=== PATIENT | male | born 1955 | race Caucasian/White ===

== ENCOUNTER 2020-11-11 07:17 | Outpatient (RCR) | payer BC, SELFPAY ==
[2020-11-11] MEDS: COVID-19 VACC, MRNA(PFIZER)/PF 30 MCG/0.3 ML SYRINGE IM (08:11)
[2020-12-02] MEDS: COVID-19 VACC, MRNA(PFIZER)/PF 30 MCG/0.3 ML SYRINGE IM (07:54)
== END 2021-02-10 23:59 ==
LOC: IMMUN 07:17
PROVIDERS: PCP Internal Medicine; Referring Provider Family Medicine; Visit Provider Family Medicine
DX: Z23 Encounter for immunization (principal)
CPT/HCPCS: 0001A; 0002A; 91300

== ENCOUNTER 2021-01-05 20:46 | Day surgery (SDC) | payer BC, SELFPAY ==
[2021-01-05 20:47] VITALS: BP 119/83; PULSE 61; RESP 18; TEMP 36.1; O2SAT 96; BMI 28.1
--- NOTE | 2021-01-05 22:12 | CT_ITS ---
We are attempting to reach an attending provider to discuss findings. An addendum with communication details will be sent when the communication is complete. STUDY: CT ABDOMEN AND PELVIS WITH CONTRAST REASON FOR EXAM: Male, 65 years old. abd pain RADIATION DOSAGE (If Supplied By Facility): CTDIvol = ( 19.01 ) mGy, DLP = ( 822.52 ) mGycm TECHNIQUE: Transaxial images were obtained from the dome of the diaphragm to the symphysis pubis without oral contrast. IV 100mL Isovue-300 was administered. Sagittal and coronal images were reconstructed. Individualized dose optimization techniques were used for this CT. COMPARISON: None. FINDINGS: The visualized lung bases are unremarkable. The visualized portions of the heart are within normal limits. Normal liver. There are numerous small calcified gallstones. There is no demonstrated bile duct dilatation. There is mild splenomegaly. Normal pancreas. Normal bilateral adrenal glands. Normal right kidney. Normal left kidney. Normal visualized stomach. There is a supraumbilical ventral hernia which contains a loop of distal jejunum or proximal ileum. There is associated small bowel obstruction with mild dilatation of afferent bowel loops and decompression of efferent loops. There is a small amount of fluid in the hernia sac and there is mural thickening of adjacent bowel segments, which may be the result of venous compression/early strangulation. Normal colon. The appendix is visualized on axial images 66-81 and it appears normal.. Normal abdominal aorta. Normal inferior vena cava. Normal retroperitoneum. Normal urinary bladder. The prostate gland is enlarged.There is a small left hydrocele and there is partial demonstration of a large bore moderately large right hydrocele. There are multilevel degenerative changes of the visualized lumbar spine. CT/Abdomen/Pelvis W IV Cont ONLY IMPRESSION: Supraumbilical ventral hernia contains a loop of distal jejunum or proximal ileum. There is associated small bowel obstruction and probably early strangulation. Gallstones. Mildly enlarged prostate. Bilateral hydroceles. Mild splenomegaly.. Electronically Signed: Zohaib Sanchez MD at 0:16 EDT , Service support ,
--- NOTE | 2021-01-05 22:33 | EDS_ITS ---
HPI HPI - GI History of Present Illness Chief Complaint: Abd Pain Informant: patient Abdominal Pain/Flank Pain Onset: Today Context: Gradual Onset Timing: Continuous Quality: Aching Location: Epigastric Current Severity: Moderate Maximum Severity: Moderate Nausea/Vomiting/Emesis GI Symptom: Positive for Nausea Narrative Narrative: The patient is a 65-year-old male with medical history significant for prior hernia repair just over a year ago. He then ended up having dehiscence. He has had an intermittent periumbilical/ventral hernia. He states that usually comes and goes back and without issue. He states that about 5:00 tonight, it came out and would not go back in. He does describe some pain. He denies fever or chills. He denies any vomiting. PFSH PFSH Medical History Depression HLD (hyperlipidemia) HTN (hypertension) Hypothyroidism Home Medications amlodipine 10 mg PO DAILY 01/05/21 [History Last Taken Unknown] atorvastatin 10 mg PO DAILY 01/05/21 [History Last Taken Unknown] bupropion HCl 75 mg PO BID 01/05/21 [History Last Taken Unknown] hydrochlorothiazide 25 mg PO DAILY 01/05/21 [History Last Taken Unknown] levothyroxine 25 mcg PO DAILY 01/05/21 [History Last Taken Unknown] venlafaxine 37.5 mg PO DAILY 01/05/21 [History Last Taken Unknown] Allergy/AdvReac Type Severity Reaction Status Date / Time No Known Allergies Allergy Verified 01/05/21 20:49 Surgical History H/O hernia repair Social History Smoking Status: Former smoker ROS ROS ED Constitutional Constitutional ED: Denies chills or fever(s) Eyes Eyes: Denies blurry vision or change in vision ENT ENT ED: Denies ear pain or sore throat Cardiovascular Cardiovascular: Denies chest pain or palpitations Respiratory/Chest Respiratory/Chest: Denies cough, dyspnea or dyspnea on exertion Gastrointestinal Gastrointestinal: Reports abdominal pain; Denies nausea or vomiting Genitourinary Genitourinary ED: Denies dysuria or urinary frequency Musculoskeletal Musculoskeletal: Denies arthralgias or myalgias Integumentary Denies rash Neurologic Neurologic: Denies headache(s) or paresthesias Psychiatric Psychiatric: Denies anxiety or depression Endocrine Endocrinology: Denies polydipsia or polyuria Allergic/Immunologic Allergic/Immunologic ED: Denies urticaria EXAM Physical Exam Const Vital Signs: 01/05/21 20:47 01/05/21 22:48 01/06/21 00:11 Temperature 97 F L Temperature Source Temporal Pulse Rate 61 77 Respiratory Rate 18 18 16 Blood Pressure 119/83 H 141/75 H Blood Pressure Mean 95 97 Pulse Ox 96 97 Oxygen Delivery Method Room Air Room Air Positive well nourished and well developed General Appearance ED: well developed HEENT Reports normocephalic, head/scalp atraumatic and moist mucous membranes Eyes PERRL and EOMs intact bilaterally Neck no lymphadenopathy and supple General: Negative for tenderness Chest Wall inspection of chest normal Resp normal respiratory effort and clear to auscultation bilaterally Cardio regular rate, regular rhythm and no murmurs GI normal to inspection, nondistended, normoactive bowel sounds Palpation: soft, tender and hernia; Negative for guarding or rebound tenderness present Back/Spine no CVA tenderness Cervical Spine: Negative for cervical spine tenderness Thoracic Spine / Upper Back: Negative for thoracic spinal tenderness Extremity normal to inspection General Extremety ED: Negative for tenderness Neuro oriented x3 and CN's II-XII intact bilaterally Neuro Narrative: No focal deficits appreciated. Sensorium / Orientation: alert Psych mental status grossly normal Skin no rashes or lesions noted, no wounds and skin turgor normal MDM MDM MDM Narrative Medical decision making narrative: Patient presents with abdominal pain. He does have hernia just above the umbilicus that is not reducible. IV was established. He was given analgesics with little change. I did place an ice pack over the area. Patient had his dose of analgesics repeated. He was still uncomfortable. The ice had sat in the area for 40 minutes and the area of the hernia was still very hard and unable to be reduced. He underwent CT imaging which does demonstrate incarcerated and likely early strangulated hernia. I had talked to surgery multiple times through the patient's evaluation to keep them up-to-date. Dr. Munoz is going to evaluate the patient likely for surgical intervention. Impression 1. Incarcerated supraumbilical hernia with strangulation Lab Data Attestation: I reviewed the patient's lab results. Labs: Laboratory Results - last 24 hr 01/05/21 01/05/21 01/05/21 22:40 22:40 22:40 WBC 12.4 H RBC 4.91 Hgb 14.8 Hct 43.9 MCV 89.4 MCH 30.1 MCHC 33.7 RDW Std Deviation 42.8 RDW Coeff of Garcia 12.9 Plt Count 195 MPV 10.5 Immature Gran % (Auto) 0.400 Neut % (Auto) 89.5 H Lymph % (Auto) 5.7 L [place] % (Auto) 3.5 Eos % (Auto) 0.6 Baso % (Auto) 0.3 Absolute Neuts (auto) 11.1 H Absolute Lymphs (auto) 0.71 L Nucleated RBC % 0 Sodium 141 Potassium 3.4 L Chloride 103 Carbon Dioxide 31.0 Anion Gap 7 BUN 26 H Creatinine 1.30 Estim Creat Clear Calc 57.71 Est GFR (MDRD) Af Amer 71 Est GFR (MDRD) Non-Af 59 L BUN/Creatinine Ratio 20.0 Glucose 128 H Lactic Acid 0.9 Calcium 9.1 Total Bilirubin 1.30 H AST 19 ALT 27 Alkaline Phosphatase 52 Total Protein 7.0 Albumin 4.2 Globulin 2.8 Albumin/Globulin Ratio 1.5 Radiography Diagnostic Testing: Radiology Impression Abdomen/Pelvis CT 01/05/21 22:12 IMPRESSION: Supraumbilical ventral hernia contains a loop of distal jejunum or proximal ileum. There is associated small bowel obstruction and probably early strangulation. Gallstones. Mildly enlarged prostate. Bilateral hydroceles. Mild splenomegaly.. Electronically Signed: Zohaib Sanchez MD at 0:16 EDT , Service support , ADDENDUM: 01/06/21 0038 IMPRESSION: Supraumbilical ventral hernia contains a loop of distal jejunum or proximal ileum. There is associated small bowel obstruction and probably early strangulation. Gallstones. Mildly enlarged prostate. Bilateral hydroceles. Mild splenomegaly.. N.B. : The above information has been verbally conveyed by Zohaib Sanchez MD to Socrates Zhang MD, on 01/06/2021 00:31:10 (ET). Electronically Signed: Zohaib Sanchez MD at 0:16 EDT , Service support , Discharge Plan Triage Chief Complaint: Abd Pain ED Provider: Socrates Zhang Dx/Rx/DC Orders Prescriptions: No Action venlafaxine 37.5 mg Capsule,Extended Release 24hr 37.5 mg PO DAILY RF: 0 atorvastatin 10 mg Tablet 10 mg PO DAILY RF: 0 levothyroxine 25 mcg Tablet 25 mcg PO DAILY RF: 0 amlodipine 10 mg Tablet 10 mg PO DAILY RF: 0 bupropion HCl 75 mg tablet 75 mg PO BID RF: 0 hydrochlorothiazide 25 mg Tablet 25 mg PO DAILY RF: 0 Primary Care Provider: Kurt Garcia
[2021-01-05] MEDS: Ondansetron 4 MG/2 ML Vial IV (22:44)
[2021-01-05] MEDS: 0.9% Normal Saline 1,000 ML 1000 ML IV (22:44)
[2021-01-05] MEDS: Morphine 4 MG/ML Syringe IV (22:44)
[2021-01-05 22:48] VITALS: RESP 18
[2021-01-05 23:00] LABS: Absolute Lymphocyte Count 0.71 X10^3/uL (0.83-4.51); Absolute Neutrophil Count 11.1 X10^3/uL (2.0-7.7); Basophil# 0.04 X10^3/uL; Basophil% 0.3 % (0-1); Eosinophil# 0.08 X10^3/uL; Eosinophils% 0.6 % (0-5); Hematocrit 43.9 % (40-54); Hemoglobin 14.8 g/dL (13.0-16.5); Lymphocyte # 0.71 X10^3/ul (0.83-4.51); Lymphocyte % 5.7 % (19-41); Mean Corp Hgb Conc 33.7 g/dL (32-36); Mean Corpuscular Hgb 30.1 pg (27.0-32.0); Mean Corpuscular Volume 89.4 fL (80-94); Mean Platelet Vol. 10.5 fl (6.2-12.0); Monocyte# 0.44 X10^3/uL; Monocyte% 3.5 % (0-10); NRBC Flagged by Analyzer 0 % (0-5); Neutrophil % 89.5 % (47-70); Platelet Count 195 K/mm3 (150-450); RBC Distribution Width CV 12.9 % (11.6-14.6); RBC Distribution Width SD 42.8 fl (35.1-43.9); Red Blood Count 4.91 M/mm3 (4.6-6.2); White Blood Count 12.4 K/mm3 (4.4-11.0)
[2021-01-05 23:17] LABS: ALB/GLOB Ratio 1.5 RATIO (0.9-2.4); AST(SGOT) 19 U/L (15-37); Alanine Aminotransfer ALT/SGPT 27 U/L (16-61); Albumin, Serum 4.2 g/dL (3.2-5.0); Alkaline Phosphatase 52 U/L (45-117); Anion Gap 7 (5-15); BUN 26 mg/dL (7-18); Calcium,Total 9.1 mg/dL (8.5-10.1); Chloride 103 mmol/L (98-107); EST Glomerular Filtration Rate 59 mL/min (>60); Est Glom Filt Rate - Afr Amer 71 mL/min (>60); Estimated Creatinine Clearance 57.71 ml/min; Globulin 2.8 g/dL (2.2-4.2); Glucose 128 mg/dL (74-106); Potassium 3.4 mmol/L (3.5-5.1); Sodium Level 141 mmol/L (136-145)
[2021-01-05 23:36] LABS: Lactic Acid 0.9 mmol/L (0.4-1.9)
[2021-01-06] VITALS (14 sets, daily range): BP systolic 112–141; BP diastolic 62–75; PULSE 56–79; RESP 16–18; TEMP 36.2–36.7; O2SAT 93–98; BMI 28.1; BMI 28.6
[2021-01-06] MEDS: HYDROmorphone 1 MG/ML Syringe IV (00:12)
--- NOTE | 2021-01-06 00:47 | EKG12_ITS ---
Test Reason : HERNIA Blood Pressure : / mmHG Vent. Rate : 074 BPM Atrial Rate : 074 BPM P-R Int : 198 ms QRS Dur : 116 ms QT Int : 402 ms P-R-T Axes : 059 017 035 degrees QTc Int : 446 ms Normal sinus rhythm Incomplete left bundle branch block Borderline ECG Confirmed by JOSE BUENROSTRO, VIRGILIO ([id number]), editor book LYLE BREAUX ([id number]) on 01/07/2021 9:02:52 AM Referred By: Raquel Munoz Confirmed By:VIRGILIO GARCIA MD
--- NOTE | 2021-01-06 01:13 | PCM.HP.STD ---
HPI - General HPI Narrative Radhames LACEY, is a 65 M who presents due to incarcerated abdominal hernia. Patient had ventral hernia repair with Dr. Moctezuma in September 2019 which did recur. At about 7 PM patient was unable to reduce this hernia which he was normally able to reduce. CT abdomen pelvis did show small bowel within the hernia. Patient white blood count 12.5. Patient currently states his pain is only about a 3?4/10. [facility] Medical History (Updated 01/06/21 @ 01:[address] Raquel Munoz MD) Depression HLD (hyperlipidemia) HTN (hypertension) Hypothyroidism Home Medications amlodipine 10 mg PO DAILY 01/05/21 [History Last Taken Unknown] atorvastatin 10 mg PO DAILY 01/05/21 [History Last Taken Unknown] bupropion HCl 75 mg PO BID 01/05/21 [History Last Taken Unknown] hydrochlorothiazide 25 mg PO DAILY 01/05/21 [History Last Taken Unknown] levothyroxine 25 mcg PO DAILY 01/05/21 [History Last Taken Unknown] venlafaxine 37.5 mg PO DAILY 01/05/21 [History Last Taken Unknown] Allergy/AdvReac Type Severity Reaction Status Date / Time No Known Allergies Allergy Verified 01/05/21 20:49 Surgical History (Updated 01/06/21 @ 01:[address] Raquel Munoz MD) H/O hernia repair History of lung surgery Hx of neck surgery Hx of right inguinal hernia repair Social History Smoking Status: Former smoker Vital Signs Vital Signs Vital Signs: 01/05/21 20:47 01/05/21 22:48 01/06/21 00:11 Temperature 97 F L Temperature Source Temporal Pulse Rate 61 77 Respiratory Rate 18 18 16 Blood Pressure 119/83 H 141/75 H Blood Pressure Mean 95 97 Pulse Ox 96 97 Oxygen Delivery Method Room Air Room Air Physical Exam Const alert, oriented x3 and no apparent distress HEENT Head and Scalp: normal to inspection and normocephalic Resp normal respiratory effort Cardio regular rate GI Palpation: soft, tender other (Supraumbilical hernia) and hernia other (Incisional supraumbilical); Negative for guarding Lab / Micro Data Result Diagrams: 01/05/21 22:40 01/05/21 22:40 Labs: Laboratory Results - last 24 hr 01/05/21 01/05/21 01/05/21 22:40 22:40 22:40 WBC 12.4 H RBC 4.91 Hgb 14.8 Hct 43.9 MCV 89.4 MCH 30.1 MCHC 33.7 RDW Std Deviation 42.8 RDW Coeff of Garcia 12.9 Plt Count 195 MPV 10.5 Immature Gran % (Auto) 0.400 Neut % (Auto) 89.5 H Lymph % (Auto) 5.7 L [place] % (Auto) 3.5 Eos % (Auto) 0.6 Baso % (Auto) 0.3 Absolute Neuts (auto) 11.1 H Absolute Lymphs (auto) 0.71 L Nucleated RBC % 0 Sodium 141 Potassium 3.4 L Chloride 103 Carbon Dioxide 31.0 Anion Gap 7 BUN 26 H Creatinine 1.30 Estim Creat Clear Calc 57.71 Est GFR (MDRD) Af Amer 71 Est GFR (MDRD) Non-Af 59 L BUN/Creatinine Ratio 20.0 Glucose 128 H Lactic Acid 0.9 Calcium 9.1 Total Bilirubin 1.30 H AST 19 ALT 27 Alkaline Phosphatase 52 Total Protein 7.0 Albumin 4.2 Globulin 2.8 Albumin/Globulin Ratio 1.5 Radiology Impression Abdomen/Pelvis CT 01/05/21 22:12 IMPRESSION: Supraumbilical ventral hernia contains a loop of distal jejunum or proximal ileum. There is associated small bowel obstruction and probably early strangulation. Gallstones. Mildly enlarged prostate. Bilateral hydroceles. Mild splenomegaly.. Electronically Signed: Zohaib Sanchez MD at 0:16 EDT , Service support , ADDENDUM: 01/06/21 0038 IMPRESSION: Supraumbilical ventral hernia contains a loop of distal jejunum or proximal ileum. There is associated small bowel obstruction and probably early strangulation. Gallstones. Mildly enlarged prostate. Bilateral hydroceles. Mild splenomegaly.. N.B. : The above information has been verbally conveyed by Zohaib Sanchez MD to Socrates Zhang MD, on 01/06/2021 00:31:10 (ET). Electronically Signed: Zohaib Sanchez MD at 0:16 EDT , Service support , Assessment & Plan Assessment/Plan (1) Incarcerated hernia of abdominal cavity: Status: Acute Code(s): K45.0 - Other specified abdominal hernia with obstruction, without gangrene Plan: Discussed CT abdomen pelvis findings of small bowel and patient's abdominal hernia which is nonreducible. Recommend repair of incarcerated possible strangulated incisional hernia, possible bowel resection. Discussed the procedure including risk but not limited to bleeding, infection, injury to another organ, need for small bowel resection, recurrence of hernia as not plan on placing mesh at this time but would use permanent sutures. Patient no further questions this time. Agreed to proceed. Raquel Munoz M.D. Pager: [phone] [facility] [address] [place] [address], [address] [place] [address] Office: [phone] Procedure Criteria Procedure Type: Elective COVID Risk Discussion: The surgeon/proceduralist and patient have discussed in detail the risk of exposure to and/or potential harm posed by the COVID-19 virus with having a surgery/procedure at this time versus the risk of delaying the surgery/procedure. It is not possible to know either the risk of delaying the surgery or procedure or chance of getting an infection with perfect accuracy, but a joint decision was made between the patient and the surgeon/proceduralist to proceed at this time with the scheduled surgery/procedure as indicated on the consent form.
--- NOTE | 2021-01-06 01:24 | RAD_ITS ---
STUDY: X-RAY CHEST REASON FOR EXAM: Male, 65 years old. pre op TECHNIQUE: Single AP portable view of the chest. COMPARISON: 02/01/2012. FINDINGS: The lungs are mildly underexpanded. There are no confluent pulmonary infiltrates. There is no demonstrated pleural abnormality. Normal size heart. Normal mediastinum and michelle. Normal visualized aortic arch and descending thoracic aorta. There are no demonstrated acute fractures or destructive bone lesions. There is no demonstrated abnormality of the visualized soft tissue structures of the upper abdomen. RAD/Chest 1 View (Portable) IMPRESSION: No evidence for acute cardiopulmonary pathology. Electronically Signed: Zohaib Sanchez MD at 2:25 EDT , Service support ,
--- NOTE | 2021-01-06 03:05 | PCM.OPRPT ---
Report of Operation Date of Procedure: 01/06/21 Pre-Operative Diagnosis: Incarcerated possible strangulated incisional hernia Post-Operative Diagnosis: Incarcerated ventral hernia x3 Surgery/Procedure Performed:: Repair of incarcerated ventral hernia x3 family law attorney: Elle Lee Type of Anesthesia: General/Supplemental Special Medications: zosyn 4.5 g IV x 1 Specimen's removed: none Estimated Blood Loss (mL): <20 cc Fluids Replaced: per anesthesia Description of Procedure: Patient was brought to the operating room placed supine on operating table. Timeout was completed verifying correct patient, procedure, site, positioning, special equipment prior to beginning procedure. General anesthesia was induced. Ultrasound was used to identify the area of hernia was actually inferior to area of previous incision. Patient's abdomen was prepped draped usual sterile fashion. Supraumbilical midline incision was made with a 15 blade scalpel. This was deepened through the fascia with electrocautery. Hernia including small bowel was seen and the small bowel was viable. This was able to be reduced into the abdomen. Fascia was cleared around this defect which was about 11 mm. Inferiorly about 2 cm there is also additional hernia about 3 mm in size and there is another hernia 2 mm hernia inferior to that by about 1 cm. These were all closed with 0 Prolene [id number] sutures. Wound was irrigated with saline. Incision was closed with subdermal 3-0 Vicryl sutures, incision closed with 4-0 Monocryl Steri-Strips and OpSite. Patient was extubated. Patient was taken the postanesthesia care unit in stable condition. Complications None
[2021-01-06] MEDS: Bupiv/Epi 0.25% 30 ML Vial (03:08)
[2021-01-06] MEDS: Lactated Ringers 1,000 ML 120 ML IV (03:50)
[2021-01-06] MEDS: Levothyroxine 25 MCG TABLET PO (05:24)
--- NOTE | 2021-01-06 08:18 | EX.PCM.DISCH ---
Discharge Instructions Outpatient Procedure Reason For Visit: HERNIA/BOWEL RESETIATION Procedure: Hernia Diet Discharge Diet: Light diet - advance as tolerated Activity Discharge Activity: May not drive while taking narcotic pain medications. Lifting Restrictions: no lifting >20 lbs x 2 wks, no strenuous exercise for 4 wks Dressing / Incision Call your doctor if your incision/area has: Continuous Slow Oozing, Sudden Increased Bleeding, Increased Pain/ Swelling, Increased Redness, Foul Smelling Discharge and Swelling at the incision site Call your doctor if you observe: Fever of 101 or Higher Remove Dressing in: 2 days Cleanse incision/area with: Soap & Water Additional Dressing/Incision Instructions:: Steri-Strips will fall off in 7 to 10 days, if they do not fall off okay to remove after 10 days. Follow Up Care Please Follow Up With: Raquel Munoz MD When: Call the office for a follow-up appointment 2 weeks; after 5 PM and on the weekends call [phone] with any concerns. Test Results: Test results from this visit will be discussed in further detail at your follow-up appointment, if applicable. Discharge Plan Admission Admit Date/Time: 01/06/21 02:13 Attending Provider: Raquel Munoz Primary Care Provider: Kurt Garcia Discharge Orders/Prescriptions Prescriptions: New oxycodone-acetaminophen [Percocet] 5-325 mg tablet 1 tab PO Q6H PRN (Reason: pain) 2 Days Qty: 10 RF: 0 No Action venlafaxine 37.5 mg Capsule,Extended Release 24hr 37.5 mg PO DAILY RF: 0 atorvastatin 10 mg Tablet 10 mg PO DAILY RF: 0 levothyroxine 25 mcg Tablet 25 mcg PO DAILY RF: 0 amlodipine 10 mg Tablet 10 mg PO DAILY RF: 0 bupropion HCl 75 mg tablet 75 mg PO BID RF: 0 hydrochlorothiazide 25 mg Tablet 25 mg PO DAILY RF: 0 Referrals: Kurt Garcia MD [Primary Care Provider] - Disposition Disposition (needs filled in before D/C Order can be placed): Home, self care
[2021-01-06] MEDS: Venlafaxine XR 37.5 MG Capsule PO (09:15)
[2021-01-06] MEDS: hydroCHLOROthiazide 25 MG Tablet PO (09:15)
[2021-01-06] MEDS: amLODIPine 10 MG Tablet PO (09:15)
[2021-01-06] MEDS: buPROPion 75 MG Tablet PO (09:16)
--- NOTE | 2021-01-06 10:13 | PHA.DC.MC ---
Pharmacy Service has performed discharge medication reconciliation and counseling for this patient. 1. PERCOCET 1T PO Q6H PRN PAIN The patient's discharge medication list was reviewed for discrepancies and discrepancies were resolved. Home Medications amlodipine 10 mg PO DAILY 01/05/21 atorvastatin 10 mg PO DAILY 01/05/21 bupropion HCl 75 mg PO BID 01/05/21 hydrochlorothiazide 25 mg PO DAILY 01/05/21 levothyroxine 25 mcg PO DAILY 01/05/21 venlafaxine 37.5 mg PO DAILY 01/05/21 oxycodone-acetaminophen [Percocet] 1 tab PO Q6H PRN 2 Days #10 tab 01/06/21 The patient was counseled on the following discharge medications and changes in medications for homegoing were reviewed. The Reason for Use, instructions for use, and potential side effects were reviewed for all new medications. The patient's questions regarding all of their medications were answered. The patient was able to verbally demonstrate an understanding of their discharge medications. Patient counseled by pharmacy teacher
--- NOTE | 2021-01-06 10:20 | CASEMGMT ---
Addendum entered by Shazia Salamanca 01/06/21 10:44: Pt aware that his medication was sent to [facility]. Updated pharmacy. He requests med to be delivered to room. TC to pharmacy to make aware. Pt also made aware that his MCR A did verify per registration. Original Note: ROSALIO GUZMAN Assessment: Face to Face with pt for initial transition planning/care coordination assessment. ROSALIO GUZMAN introduced self and role at [facility], pt voices understanding and consents to assessment. Pt is A/O x4 and answers all questions appropriately at this time. Pt sitting up in bed eating breakfast in no distress. Care providers, pharmacy, and demographics verified/updated. Admitting Dx: Repair of hernia PCP: Jose Specialists: Pt denies having any specialists. [facility] Insurance: DAFNE Drake A- Pt states he does not have MCR A. TC to registration and spoke with Cristy who states MCR was verified today. Prescription Benefit: yes LW/HPOA: Pt denies having a LW/DPOA. LNOK: Friend Carol Browning Living Arrangements: Pt lives alone in a two story apt with 3 steps to enter. Pt is I in ADL's. Pt denies concerns at home. Transportation: Pt drives self and denies concerns with transportation. DME/HHC/SNF: Pt denies having any DME, prior HHC or prior SNF stays. 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 Pt states no concerns with going home at time of dc. Pt states no further concerns/needs. CM to follow. Advised pt to ask CM if any further question/concerns/needs arise, voices understanding. Pt Goal: Home Plan: Home
== END 2021-01-06 12:13 | disposition home or self-care (01) ==
LOC: ED 22:06 → SDC 01-06 01:39 → AC 01-06 01:39 → SDC 01-06 02:14 → PCU 01-06 08:20
PROVIDERS: Emergency Provider Emergency Medicine; PCP Internal Medicine; Referring Provider Surgery; Visit Provider Surgery
PROC: (CPT 49566; principal; 2021-01-06 02:00)
DX: K43.0 Incisional hernia with obstruction, without gangrene (principal); I10 Essential (primary) hypertension; E78.5 Hyperlipidemia, unspecified; E03.9 Hypothyroidism, unspecified; F32.9 Major depressive disorder, single episode, unspecified; Z79.899 Other long term (current) drug therapy; Z87.891 Personal history of nicotine dependence
CPT/HCPCS: 49566; 71045; 74177; 80053; 83605; 85025; 87426; 93005; 99284; J7030; J7120; Q9967; A4216; J2405

== ENCOUNTER → 2025-01-02 | Outpatient (CLI) | payer BC, SELFPAY ==
--- NOTE | 2025-01-02 10:00 | CT_ITS ---
PROCEDURE: SINUS/FACIAL BONE WITH CONTRAS, 01/02/2025 REASON FOR EXAM: PAIN TECHNIQUE: CT sinuses was performed with IV contrast. Multiplanar reformats were generated. IV Contrast: 98 mL Isovue 300 RADIATION DOSE SUMMARY: CTDlvol: 29.38 mGy DLP: 745.80 mGycm One or more dose reduction techniques were used (e.g., Automated exposure control, adjustment of the mA and/or kV according to patient size, use of iterative reconstruction technique). COMPARISON: None FINDINGS: Exam limited by streak artifact related to dental amalgam. Operative changes: None. Paranasal sinuses: Mild/moderate mucosal thickening in the bilateral maxillary sinuses. Mild/moderate mucosal thickening in the ethmoid air cells with patchy opacification. Trace mucosal thickening in the sphenoid sinuses. Moderate mucosal thickening in the inferior most frontal sinuses and frontal recesses. No air-fluid level or frothy secretions.. Outflow tracts: Narrowed but patent [place] LEFT maxillary ostia. Probable soft tissue opacification of the [place] RIGHT maxillary ostia. Patent accessory bilateral maxillary ostia. Suspect soft tissue narrowing rather than opacification of the posterior most bilateral sphenoethmoidal recesses, given relative aeration of the sinuses. Opacification of the LEFT [id number] frontal recesses. Anatomic variants: Slight rightward nasal septal deviation of approximately 3 mm with a tiny bony spur. Accessory bilateral maxillary ostia as above. Slightly asymmetric fovea ethmoidalis and olfactory fossa depths, LEFT higher than RIGHT.. Other: Mastoid air cells are clear. Pituitary measures 10 mm in craniocaudal extent. Suspected demineralization. Atherosclerosis. Suspect operative changes of the RIGHT neck, partially imaged and not well evaluated, with presumed ill-defined scarring in the region. Asymmetric effacement of the LEFT piriform sinus without measurable lesion. Thickening of the epiglottis. Mild cervical spondylosis. Mild/moderate cerebral volume loss. RIGHT level I node measures 12 mm short axis. Asymmetric skin thickening and subcutaneous stranding overlying the LEFT mandible. Faintly rim enhancing thin potentially subperiosteal collection abutting the facial cortex of the LEFT mandibular body cranially measures 2.0 x 0.4 x 1.1 cm. Thickening of the overlying facial musculature suggesting myositis. Stranding in the overlying subcutaneous tissues with skin thickening suggesting cellulitis. No clear involvement of the floor of the mouth at present. No clear abnormality of the roots of nearby mandibular teeth although assessment in the region is limited by streak artifact from dental amalgam. Lucency surrounding the root of the posterior most RIGHT maxillary tooth suspicious for periapical abscess. CT/Sinus/Facial Bone WITH Contras IMPRESSION: 1. 2.0 cm faintly rim enhancing fluid collection abutting the facial cortex of the LEFT mandibular body suspicious for a potentially subperiosteal abscess. Soft tissue thickening and inflammation in the overlying LEFT face likely reflecting cellulitis and myositis. Finding is typically odontogenic although no clear ma ndibular periapical abscess or other definite odontogenic etiology is identified allowing for streak artifact related to dent al amalgam. No clear involvement of the floor of the mouth to suggest the clinical diagnosis of Elbert's angina however close cl inical follow-up is warranted to exclude this possibility. Recommend dental consultation for this as well as unrelated findi ngs related to a RIGHT maxillary tooth root. 2. RIGHT level I cervical lymphadenopathy. Given partially imaged presumed RIG HT neck dissection more inferiorly (region not well evaluated), this is suspicious for jed metastasis, although this could c onceivably also be reactive to the above. Recommend clinical/oncologic follow-up. PET/CT, comparison with outside imagin g, and/or tissue sampling should be considered. 3. Asymmetric effacement of the LEFT piriform sinus could be related to dysfunc tion of the RIGHT recurrent laryngeal nerve or perhaps an occult lesion on the LEFT. Additional abnormal thickening of the ep iglottis which could conceivably be related to prior radiation therapy given an appropriate history however underlying lesion cannot be excluded. Recommend direct visualization. Presumed RIGHT neck dissection as above, partially imaged and n ot well evaluated. Comparison with any available outside imaging in the region would again also be helpful to evaluate stability of these findings, otherwise recommend CT neck with contrast if not available. 4. 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 Clinical follow-up and/or comparison with any available outside i maging is recommended. 5. Mild/moderate pansinusitis favoring the maxillary sinuses. No findings to s uggest acute sinusitis. Outflow tracts as above. 6. Additional description as above. Reading Location: [id number]
== END | disposition home or self-care (01) ==
LOC: CT 09:39
PROVIDERS: PCP Internal Medicine; Referring Provider Nurse Practitioner; Visit Provider Nurse Practitioner
DX: G50.1 Atypical facial pain (principal)
CPT/HCPCS: 70487; Q9967